=== PATIENT | female | born 1985 | race Caucasian/White ===

== ENCOUNTER 2019-10-24 08:20 | Outpatient (CLI) | payer BC, SELFPAY | END 2019-10-24 08:21 | disposition home or self-care (01) | LOC: ANHAUDIO 08:27 | PROVIDERS: PCP Nurse Practitioner Adult Health; Referring Provider Otolaryngology; Visit Provider Otolaryngology | DX: R42 Dizziness and giddiness (principal) | CPT/HCPCS: 92537; 92540; 92546; 92557; 92567 ==

== ENCOUNTER 2021-08-28 22:27 | Emergency (ER) | payer OTHER, SELFPAY ==
--- NOTE | ~2021-08-28 | CT_ITS ---
EXAMINATION: CT abdomen pelvis w con DATE: 08/29/2021 01:28 INDICATION: Right upper quadrant abdominal pain radiating to back TECHNIQUE: Computed tomography (CT) of the abdomen and pelvis was performed with 100 cc Omnipaque 350 intravenous contrast. Automated exposure control and iterative reconstruction technique were employe d. Exam dose: 1565.08 mGy-cm total exam DLP. COMPARISON: None. FINDINGS: The lung bases are clear. Normal heart size. No pericardial or pleural effusion. Small sliding hiatal hernia. Postoperative change of the stomach. There is thickening and/or edema of the gallbladder wall suggesting possible acute cholecystitis. Con curriculum development coordinator gallbladder ultrasound and possibly radionuclide hepatobiliary scan as clinically appropriate. No hepatic space-occupying mass lesion. No bile duct dilatation. No pancreatic mass lesion, calcifica tion or ductal dilatation. Normal splenic size. Normal morphology of the adrenal glands. No renal space occupying mass lesion other than 9 mm lower pole left renal cyst. No urinary tract angel culus or hydroureteronephrosis. There is an IUD within the uterus. Normal caliber of the abdominal aorta. No intraperitoneal or retroperitoneal or pelvic mass lesion or adenopathy or ascites. Normal appendix. Diverticulosis of left and right colon; no CT evidence of diverticulitis. No bowel obstruction, bowel wall thickening, pneumatosis or intraperitoneal free air. Very small fat-containing umbilical hernia. IMPRESSION: Mild gallbladder wall thickening and/or edema, suggesting possible acute cholecystitis. Consider gallbladder ultrasound and possibly radionuclide hepatobiliary scan as clinically appropriat e Mild colonic diverticulosis; no CT evidence of diverticulitis Small sliding hiatal hernia Postoperative change of the stomach 9 mm lower pole left renal cyst IUD within uterus Dr. Light telephoned the report and the finding of gallbladder wall thickening and/or edema and possib le acute cholecystitis on 08/29/2021 1527 hours to emergency room physician Dr. De La Fuente. Reviewed, dictated and finalized at [facility]. Reviewed, dictated and finalized at location A. DOWN SPECIALIST IMPRESSION: Mild gallbladder wall thickening and/or edema, suggesting possible acute cholecystitis. Consider gallbladder ultrasound and possibly radionuclide hepatobiliary scan as clinically appropriate Mild colonic diverticulosis; no CT evidence of diverticulitis Small sliding hiatal hernia Postoperative change of the stomach 9 mm lower pole left renal cyst IUD within uterus Dr. Light telephoned the report and the finding of gallbladder wall thickening a nd/or edema and possible acute cholecystitis on 08/29/2021 1527 hours to emerge ncy room physician Dr. De La Fuente.
[2021-08-28 22:31] VITALS: BP 156/94; PULSE 65; RESP 18; TEMP 35.9; O2SAT 100
--- NOTE | 2021-08-28 22:35 | ECG_ITS ---
Measurements Intervals [place] Rate: 59 P: 42 ID: 144 QRS: 27 QRSD: 98 T: 40 QT: 416 QTc: 414 Interpretive Statements SINUS BRADYCARDIA MINIMAL Q WAVES- HIGH LATERAL LEADS BORDERLINE ECG Electronically Signed On 08-29-2021 8:28:42 DAY LIGHT RELIEF OPERATOR by Greg Anderson D.O.
[2021-08-28] MEDS: ONDANSETRON INJ 4 MG/2 ML VIAL IV PUSH (23:50)
[2021-08-28] MEDS: MORPHINE SULFATE (*CRX) 4 MG/ML INJ IV PUSH (23:50)
[2021-08-29 00:02] LABS: Basophils Absolute Auto 0.1 K/mm3 (0.0-0.1); Basophils Percent Auto 0.4 % (0.2-1.2); Eosinophils Absolute Auto 0.3 K/mm3 (0-0.3); Eosinophils Percent Auto 2.2 % (0-4.4); Hematocrit 39.5 % (37.0-47.0); Hemoglobin 13.3 g/dL (12.0-15.0); Immature Granulocyte Absolute 0.05 K/mm3 (0.00-0.031); Immature Granulocyte Percent A 0.4 % (0-0.5); Lymphocytes Absolute Auto 2.79 K/mm3 (0.9-3.2); Lymphocytes Percent Auto 20.2 % (18.3-44.2); Mean Corpuscular HGB Conc 33.7 g/dl (32-36); Mean Corpuscular Hemoglobin 31.8 pg (26-34); Mean Corpuscular Volume 94.5 fl (80-100); Mean Platelet Volume 9.6 fl (7.4-10.4); Monocytes Percent Auto 7.4 % (2.6-8.5); Neutrophils Absolute Auto 9.6 K/mm3 (1.3-6.7); Neutrophils Percent Auto 69.4 % (45.5-73.1); Platelet Count Result 226 k/mm3 (150-375); Red Blood Count 4.18 M/mm3 (4.2-5.4); Red Cell Distribution Width 12.1 % (11.5-14.5); White Blood Count 13.8 K/mm3 (4.5-10.0)
--- NOTE | 2021-08-29 00:12 | ED.GENADULT ---
HPI - General Adult General Chief complaint: Chest Pain <Jeff Mesa MD - Last Filed: 08/29/21 01:08> Stated complaint: chest pain <Jeff Mesa MD - Last Filed: 08/29/21 01:08> Time Seen by Provider: 08/28/21 23:27 <Jeff Mesa MD - Last Filed: 08/29/21 01:08> History of Present Illness HPI narrative: Patient is a 35-year-old female who presents ER with upper abdominal pain. Moves into her back and under her breast. Ongoing for 24 hours. No improvement with acid reflux medication after consulting her PCP. She does have a gallbladder. She has mild nausea but no vomiting. No constipation or diarrhea or bloating. Cannot describe aggravating or alleviating factors. No exertional component. <Jeff Mesa MD - Last Filed: 08/29/21 01:08> Related Data Allergies/adverse reactions: Allergies Allergy/AdvReac Type Severity Reaction Status Date / Time No Known Allergies Allergy Verified 05/11/19 12:34 <Jeff Mesa MD - Last Filed: 08/29/21 01:08> Review of Systems Review of Systems: All systems reviewed & are unremarkable except as noted in HPI and below <Jeff Mesa MD - Last Filed: 08/29/21 01:08> Constitutional: Constitutional: Denies chills, Denies fever(s) and Denies weakness <Jeff Mesa MD - Last Filed: 08/29/21 01:08> ENT: Denies nasal congestion and Denies sore throat <Jeff Mesa MD - Last Filed: 08/29/21 01:08> Cardiovascular: Cardiovascular: Denies chest pain and Denies radiating jaw, neck or arm pain <Jeff Mesa MD - Last Filed: 08/29/21 01:08> Respiratory: Respiratory: Denies cough and Denies dyspnea <Jeff Mesa MD - Last Filed: 08/29/21 01:08> Gastrointestinal: Gastrointestinal: Reports abdominal pain, Denies constipation, Denies diarrhea, Reports nausea and Denies vomiting <Jeff Mesa MD - Last Filed: 08/29/21 01:08> Genitourinary: Genitourinary: Denies hematuria, Denies dysuria and Denies flank pain <Jeff Mesa MD - Last Filed: 08/29/21 01:08> [facility] Past Medical History Medical History: Medical History (Updated 08/29/21 @ 03:37 by Sidney Vee MD) Depression <Jeff Mesa MD - Last Filed: 08/29/21 01:08> Surgical History Surgical History: Surgical History (Updated 08/29/21 @ 00:18 by Jeff Mesa MD) History of gastric bypass <Jeff Mesa MD - Last Filed: 08/29/21 01:08> Social History Social History: Social History (Updated 08/29/21 @ 00:18 by Jeff Mesa MD) Smoking status: Never smoker <Jeff Mesa MD - Last Filed: 08/29/21 01:08> Exam Narrative: GENERAL: Well-appearing, obese, and in no acute distress. HEAD: Normocephalic, atraumatic. ENT: Mucous membranes moist. CHEST: Clear to auscultation. No respiratory distress. HEART: Regular rate and rhythm. Normal peripheral pulses. ABDOMEN: Soft, tender palpation right upper quadrant guarding, nondistended. EXTREMITIES: Normal range of motion. No edema. SKIN: Warm, dry, no rash. NEURO: Alert and oriented x3. PSYCH: Normal mood and affect. <Jeff Mesa MD - Last Filed: 08/29/21 01:08> Course Reevaluation(s) Reevaluation #1: Pain persisting after morphine. Second dose ordered. Patient will go to CT. <Jeff Mesa MD - Last Filed: 08/29/21 01:08> Date: 08/29/21 <Jeff Mesa MD - Last Filed: 08/29/21 01:08> Time: 01:08 <Jeff Mesa MD - Last Filed: 08/29/21 01:08> Vital Signs Vital signs: Vital Signs Temperature 35.9 C L 08/28/21 22:31 Pulse Rate 65 08/28/21 22:31 Respiratory Rate 18 08/28/21 22:31 Blood Pressure 156/94 H 08/28/21 22:31 Pulse Oximetry 100 08/28/21 22:31 Temperature 35.9 C L 08/28/21 22:31 Pulse Rate 75 08/29/21 02:54 Respiratory Rate 16 08/29/21 02:54 Blood Pressure 112/63 08/29/21 02:54 Pulse Oximetry 99 08/29/21 02:54 <Jeff Mesa,
[2021-08-29 00:15] LABS: Alanine Aminotransferase 17 U/L (4-35); Albumin Level 3.9 g/dL (3.5-5.1); Alkaline Phosphatase 52 U/L (38-126); Anion Gap 8 mmol/L (8-16); Aspartate Amino Transferase 25 U/L (14-36); Bilirubin,Total 0.6 mg/dL (0.2-1.3); Blood Urea Nitrogen 10 mg/dL (7-17); Carbon Dioxide 26 mmol/L (22-30); Chloride 103 mmol/L (98-107); Estimated CRCL calculation 134 ml/min; Estimated Glomerular Filt Rate > 60; Glucose 110 mg/dL (65-110); Lipase 97 U/L (23-300); Potassium 3.9 mmol/L (3.4-5.0); Sodium 137 mmol/L (137-145)
[2021-08-29 00:47] VITALS: BP 112/62; PULSE 65; RESP 18; O2SAT 100
[2021-08-29 01:39] VITALS: BP 106/74; PULSE 65; RESP 18; O2SAT 99
[2021-08-29] MEDS: MORPHINE SULFATE (*CRX) 4 MG/ML INJ IV PUSH (01:40)
[2021-08-29 02:54] VITALS: BP 112/63; PULSE 75; RESP 16; O2SAT 99
[2021-08-29 04:16] VITALS: BP 121/71; PULSE 36; RESP 16; O2SAT 96
== END 2021-08-29 04:05 | disposition home or self-care (01) ==
PROVIDERS: Emergency Medicine; Emergency Provider Emergency Medicine; PCP Nurse Practitioner Adult Health
DX: K29.00 Acute gastritis without bleeding (principal); Z98.84 Bariatric surgery status; R00.1 Bradycardia, unspecified
CPT/HCPCS: 36415; 74177; 80053; 81025; 83690; 85025; 93005; 96374; 96375; 96376; 99284; J2270; J2405; Q9967

== ENCOUNTER 2021-08-29 15:44 | Inpatient (IN) | payer OTHER, SELFPAY ==
[2021-08-29] VITALS (25 sets, daily range): BP systolic 121–141; BP diastolic 61–90; PULSE 78–104; RESP 16–25; TEMP 36.2–36.6; O2SAT 95–99; BMI 40.4
--- NOTE | ~2021-08-29 | US_ITS ---
US abdomen limited DATE: 08/31/2021 10:06 INDICATION: Elevated liver function tests. Cholecystitis. TECHNIQUE: Real-time imaging of liver, pancreas, gallbladder COMPARISON: 08/25/2021 CT abdomen pelvis FINDINGS: No hepatic or pancreatic space-occupying mass lesion is evident. Normal hepatopedal portal venous flow direction. There are multiple filling defects within the gallbladder with shadowing. The gallbladder wall measur es up to 4.8 mm thickness, suggesting acute or chronic cholecystitis. Negative sonographic Burk's s ign. The common bile duct measures 4 mm, within normal limits. IMPRESSION: Cholelithiasis Gallbladder wall thickening, suggesting acute or chronic cholecystitis. Reviewed, dictated and finalized at [facility]. Reviewed, dictated and finalized at location [facility]. 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
--- NOTE | ~2021-08-29 | XR_ITS ---
EXAMINATION: XR chest 2V DATE: 08/29/2021 16:56 INDICATION: Chest and abdominal pain TECHNIQUE: PA and lateral views of the chest were obtained. COMPARISON: Chest radiograph dated 08/20/2007 FINDINGS: The lungs remain clear with no focal airspace opacities, pulmonary edema, pleural effusion or pneumot horax. The cardiomediastinal silhouette is normal. Chronic mild anterior wedging at T11 and T12 which may be physiologic. IMPRESSION: 1. No acute cardiopulmonary disease. Reviewed, dictated and finalized at location [facility]. L DESIGNER
--- NOTE | ~2021-08-29 | XR_ITS ---
XR cholangiogram surg 1st inj DATE: 08/31/2021 11:57 INDICATION: Acute cholecystitis. Laparoscopic cholecystectomy. TECHNIQUE: Serial images of the bile ducts during intraoperative injection of the cystic duct 18.6 seconds fluoroscopy time [id number] [id number] COMPARISON: None FINDINGS: No stricture, abnormal dilatation or filling defect of the common bile duct or common hepat ic duct or the included left or right hepatic ducts is noted. Contrast material flows freely into the duodenum without obstruction. IMPRESSION: Negative Reviewed, dictated and finalized at [facility]. Reviewed, dictated and finalized at location [facility]. TRIC METER TECHNICIAN IMPRESSION: Negative
--- NOTE | 2021-08-29 16:28 | ECG_ITS ---
Measurements Intervals [place] Rate: 90 P: 17 VA: 148 QRS: 18 QRSD: 88 T: 19 QT: 349 QTc: 428 Interpretive Statements SINUS RHYTHM BORDERLINE T WAVE ABNORMALITY- ANT/INF LEADS BORDERLINE ECG Electronically Signed On 08-29-2021 17:01:30 STAKER SURVEYING by Greg Anderson D.O.
[2021-08-29 17:09] LABS: Basophils Percent Auto 0.2 % (0.2-1.2); Eosinophils Percent Auto 0.1 % (0-4.4); Hematocrit 42.8 % (37.0-47.0); Hemoglobin 14.5 g/dL (12.0-15.0); Immature Granulocyte Absolute 0.05 K/mm3 (0.00-0.031); Immature Granulocyte Percent A 0.3 % (0-0.5); Lymphocytes Absolute Auto 0.93 K/mm3 (0.9-3.2); Lymphocytes Percent Auto 6.2 % (18.3-44.2); Mean Corpuscular HGB Conc 33.9 g/dl (32-36); Mean Corpuscular Hemoglobin 31.5 pg (26-34); Mean Platelet Volume 9.3 fl (7.4-10.4); Monocytes Absolute Auto 0.8 K/mm3 (0.1-0.6); Monocytes Percent Auto 5.6 % (2.6-8.5); Neutrophils Absolute Auto 13.2 K/mm3 (1.3-6.7); Neutrophils Percent Auto 87.6 % (45.5-73.1); Platelet Count Result 223 k/mm3 (150-375); Red Cell Distribution Width 12.2 % (11.5-14.5); White Blood Count 15.1 K/mm3 (4.5-10.0)
[2021-08-29 17:18] LABS: Alanine Aminotransferase 275 U/L (4-35); Albumin Level 4.4 g/dL (3.5-5.1); Alkaline Phosphatase 105 U/L (38-126); Anion Gap 6 mmol/L (8-16); Aspartate Amino Transferase 240 U/L (14-36); Bilirubin,Total 1.8 mg/dL (0.2-1.3); Blood Urea Nitrogen 6 mg/dL (7-17); Calcium 9.5 mg/dL (8.4-10.2); Carbon Dioxide 26 mmol/L (22-30); Chloride 100 mmol/L (98-107); Estimated CRCL calculation 157 ml/min; Estimated Glomerular Filt Rate > 60; Glucose 124 mg/dL (65-110); Lipase 52 U/L (23-300); Potassium 3.9 mmol/L (3.4-5.0); Prothrombin Time 12.8 Seconds (11.1-14.7); Sodium 132 mmol/L (137-145)
[2021-08-29 17:19] LABS: Partial Thromboplastin Time 26.4 SECONDS (22.3-36.8)
[2021-08-29 17:30] LABS: Troponin I < 0.012 ng/mL (0.000-0.034)
--- NOTE | 2021-08-29 21:04 | ED.ABDPAIN ---
HPI - Abdominal Pain General Chief Complaint: Chest Pain Stated Complaint: chest pain Time Seen by Provider: 08/29/21 20:58 Source: patient Mode of arrival: ambulatory Limitations: no limitations History of Present Illness HPI narrative: Patient is a 35-year-old female complaining of right upper quadrant pain, 8 out of 10, sharp, radiating to back and chest started 3 days ago. Patient also complained of nausea, denies any vomiting, fever or chills. Patient was seen here last night initial CT reading by [facility] was antral gastritis, officially read by our radiologist and read it as acute cholecystitis. Patient states she is back because the pain is worse. Related Data Allergies Allergy/AdvReac Type Severity Reaction Status Date / Time No Known Allergies Allergy Verified 05/11/19 12:34 Review of Systems Review of Systems: All systems reviewed & are unremarkable except as noted in HPI and below Constitutional: Constitutional: Denies body ache(s), Denies chills, Denies excessive sweating, Denies fatigue, Denies fever(s), Denies headache(s), Denies lethargy, Denies malaise, Denies weakness and Denies weight loss Eyes: Eyes: Denies blurry vision, Denies change in vision and Denies loss of vision ENT: Denies dizziness, Denies ear discharge, Denies headache(s), Denies lip swelling, Denies epistaxis, Denies nasal congestion, Denies neck pain, Denies throat swelling and Denies tongue swelling Cardiovascular: Cardiovascular: Denies diaphoresis, Denies rapid heart rate, Denies edema, Denies irregular heart rhythm, Denies lightheadedness, Denies palpitations, Denies dyspnea and Denies dyspnea on exertion Respiratory: Respiratory: Denies chest congestion, Denies cough, Denies hemoptysis, Denies dyspnea and Denies dyspnea on exertion Gastrointestinal: Gastrointestinal: Denies melena, Denies hematochezia, Denies diarrhea, Denies vomiting and Denies hematemesis Musculoskeletal: Musculoskeletal: Denies abnormal gait, Denies deformity, Denies joint swelling, Denies limited range of motion, Denies neck pain and Denies numbness Neurologic: Denies Abnormal speech present, Denies abnormal gait, Denies confusion, Denies dizziness, Denies headache(s), Denies focal weakness, Denies loss of vision, Denies numbness, Denies Other visual disturbances, Denies Sensory deficit (Neuro) and Denies weakness Psychiatric: Psychiatric: Denies confusion, Denies depression, Denies auditory hallucinations, Denies homicidal ideation and Denies suicidal ideation Endocrine: Endocrine: Denies cold intolerance, Denies excessive sweating, Denies fatigue, Denies heat intolerance and Denies palpitations Hematologic/Lymphatic: Hematologic/Lymphatic: Denies easy bleeding and Denies easy bruising Allergic/Immunologic: Allergic/Immunologic: Denies lip swelling, Denies throat swelling and Denies tongue swelling PMFSH Past Medical History Medical History (Updated 08/29/21 @ 21:12 by Sidney Vee MD) Depression Surgical History Surgical History (Updated 08/29/21 @ 00:18 by Jeff Mesa MD) History of gastric bypass Social History Social History (Updated 08/29/21 @ 00:18 by Jeff Mesa MD) Smoking status: Never smoker Comments Past medical history: Gastric bypass surgery, sleep Family history: None Social history: Non-smoker occasional EtOH use, no drug use Exam Const: General: cooperative, healthy appearing, comfortable, no acute distress, well developed, alert and awake; No confusion Orientation/consciousness: oriented to person, oriented to place, oriented to time, patient oriented x3 and No confusion Limitations: no limitations HENMT: Head: normal to inspection, normocephalic and atraumatic Ears: hearing grossly normal bilaterally, TM normal on the right and TM normal on the left General nose exam: Normal external nose present, Normal nares present and No nasal discharge present Face and sinus: normal facial exam Mouth: Yes Normal oral a
[2021-08-29] MEDS: HYDROmorphone HCL INJ (*CRX) 1 MG/ML SYR 0.5 MG IV PUSH (21:23)
[2021-08-29] MEDS: PROMETHAZINE HCL 25 MG/ML AMPUL 12.5 MG IV PUSH (21:25)
[2021-08-29] MEDS: LACTATED RINGERS 1,000 ML 250 ML IV CONT (21:29)
--- NOTE | 2021-08-29 23:50 | ADMGEN ---
This patient, Emmanuelle Ram, was admitted to Medical Room 343-01. Patient/family oriented to hospital policies and general routines including ID bracelet, bed and alarms, visiting hours, pain management, procedures, bathroom and other care routines, personal items, smoking policy, room service/diet, and visiting hours. Information on how to activate the Rapid Response Team has been discussed. Patient/Family are encouraged to report perceived risks to care and to ask questions if they do not understand what they are told or what they should do.
[2021-08-30 00:14] VITALS: RESP 16; O2SAT 98
[2021-08-30] MEDS: LACTATED RINGERS 1,000 ML 125 ML IV CONT ×3 (01:33→20:17)
[2021-08-30] MEDS: ONDANSETRON INJ 4 MG/2 ML VIAL IV PUSH ×2 (01:35→06:05)
[2021-08-30] MEDS: HYDROmorphone HCL INJ (*CRX) 1 MG/ML SYR 0.5 MG IV PUSH ×4 (01:35→20:18)
[2021-08-30 04:20] VITALS: BP 110/62; PULSE 77; RESP 17; TEMP 36.4; O2SAT 98
[2021-08-30 06:27] LABS: Basophils Percent Auto 0.2 % (0.2-1.2); Eosinophils Percent Auto 0.1 % (0-4.4); Hematocrit 39.6 % (37.0-47.0); Hemoglobin 13.3 g/dL (12.0-15.0); Immature Granulocyte Absolute 0.06 K/mm3 (0.00-0.031); Immature Granulocyte Percent A 0.4 % (0-0.5); Lymphocytes Percent Auto 8.2 % (18.3-44.2); Mean Corpuscular HGB Conc 33.6 g/dl (32-36); Mean Corpuscular Hemoglobin 31.7 pg (26-34); Mean Corpuscular Volume 94.3 fl (80-100); Mean Platelet Volume 9.8 fl (7.4-10.4); Monocytes Percent Auto 7.1 % (2.6-8.5); Neutrophils Absolute Auto 12.3 K/mm3 (1.3-6.7); Platelet Count Result 195 k/mm3 (150-375); Red Cell Distribution Width 12.2 % (11.5-14.5); White Blood Count 14.6 K/mm3 (4.5-10.0)
[2021-08-30 06:34] LABS: Alanine Aminotransferase 191 U/L (4-35); Albumin Level 3.9 g/dL (3.5-5.1); Alkaline Phosphatase 88 U/L (38-126); Anion Gap 3 mmol/L (8-16); Aspartate Amino Transferase 105 U/L (14-36); Bilirubin,Total 2.1 mg/dL (0.2-1.3); Blood Urea Nitrogen 5 mg/dL (7-17); Calcium 8.8 mg/dL (8.4-10.2); Carbon Dioxide 25 mmol/L (22-30); Chloride 102 mmol/L (98-107); Estimated CRCL calculation 159 ml/min; Estimated Glomerular Filt Rate > 60; Glucose 109 mg/dL (65-110); Potassium 3.9 mmol/L (3.4-5.0); Sodium 130 mmol/L (137-145)
--- NOTE | 2021-08-30 11:30 | PM.IMHP ---
H&P: HPI History of Present Illness Date/Time: 08/30/21 11:30 Chief Complaint: Upper abdominal pain Narrative: this is a 35-year-old woman who presented to the emergency department overnight with upper abdominal pain for the past 4 days. She began having pain 4 days ago after eating a banana and some oranges. She had mild cramping about 2 weeks ago but this went away with time. Otherwise she has never had any symptoms like this in the past. She did present to the emergency department on 08/[address] at that time was read as mild gastric antrum thickening by the [facility]. The CT was then read by our in-house radiologist the following morning as mild gallbladder wall thickening. No gallstones were seen. She went home from the emergency department on 08/28 but continued to have worsening pain throughout the day yesterday. She then presented back to the emergency department last night. Her liver enzymes are now noted to be elevated and her white blood count is still persistently elevated. She was admitted for further treatment and placed on broad-spectrum IV antibiotics. She has had some nausea but no vomiting. She denies any change in her bowels. She has had slightly darker orange-colored urine. Review of Systems Review of Systems: All systems reviewed & are unremarkable except as noted in HPI and below Constitutional: Constitutional: Denies chills and Denies fever(s) Eyes: Eyes: Denies change in vision ENT: Denies hearing loss, Denies neck pain and Denies sore throat Cardiovascular: Cardiovascular: Denies chest pain and Denies dyspnea Respiratory: Respiratory: Denies cough, Denies dyspnea and Denies wheezing Gastrointestinal: Gastrointestinal: Reports as per HPI Genitourinary: Genitourinary: Denies hematuria and Denies dysuria Musculoskeletal: Musculoskeletal: Denies arthralgias, Denies joint swelling and Denies neck pain Allergic/Immunologic: Allergic/Immunologic: Denies wheezing [facility] Past Medical History Medical History (Updated 08/30/21 @ 11:36 by Fermin Thompson DO) Depression Surgical History Surgical History (Updated 08/30/21 @ 11:34 by Fermin Thompson DO) History of sleeve gastrectomy Family History Family History Mother Cholecystitis Social History Social History (Reviewed 08/30/21 @ 11:33 by WINSOME Maher Smoking status: Never smoker Alcohol intake: current Drinks per week: 1 Substance use: current Substance use type: marijuana Other substance usage details: Jun 2021 Spiritual care concerns: No Meds Home Medications and Allergies Home Medications Medication Instructions Recorded Confirmed Type esomeprazole magnesium [Nexium 20 mg PO DAILY #7 cap 08/29/21 08/29/21 Rx 24HR] famotidine [Pepcid] 20 mg PO BID #10 tablet 08/29/21 08/29/21 Rx bupropion HCl 150 mg PO DAILY 08/30/21 08/30/21 History omeprazole 40 mg PO QAM AND QHS 08/30/21 08/30/21 History Allergies Allergy/AdvReac Type Severity Reaction Status Date / Time No Known Allergies Allergy Verified 08/29/21 23:53 Vital Signs Vital Signs - 24 hr 08/29/21 16:24 08/29/21 21:12 08/29/21 21:13 Temperature 36.6 C Pulse Rate 103 H 86 84 Respiratory Rate 18 24 H 17 Blood Pressure 128/79 137/85 137/85 Pulse Oximetry 98 95 98 08/29/21 21:15 08/29/21 21:16 08/29/21 21:30 Temperature Pulse Rate 87 81 87 Respiratory Rate 23 H 23 H 20 Blood Pressure 133/87 Pulse Oximetry 97 98 97 08/29/21 21:31 08/29/21 21:45 08/29/21 21:46 Temperature Pulse Rate 91 85 91 Respiratory Rate 20 16 17 Blood Pressure 138/82 134/82 Pulse Oximetry 96 97 98 08/29/21 22:00 08/29/21 22:01 08/29/21 22:15 Temperature Pulse Rate 90 86 81 Respiratory Rate 24 H 23 H 20 Blood Pressure 140/86 Pulse Oximetry 96 96 97 08/29/21 22:16 08/29/21 22:30 08/29/21 22:31 Temperature Pulse Rate 79 78 80 Respirato
[2021-08-30 14:41] VITALS: BP 110/63; PULSE 84; RESP 20; TEMP 36.2; O2SAT 99
[2021-08-30 22:55] VITALS: BP 119/67; PULSE 90; RESP 20; TEMP 39.1; O2SAT 97
[2021-08-31] VITALS (19 sets, daily range): BP systolic 108–131; BP diastolic 55–81; PULSE 72–90; RESP 16–24; TEMP 36.1–38.4; O2SAT 94–100
[2021-08-31] MEDS: LACTATED RINGERS 1,000 ML 125 ML IV CONT (04:37)
--- NOTE | 2021-08-31 04:50 | PC.NURSE ---
Dr Thompson notified pt febrile 102.3. Blood cultures ordered, continue to monitor and provider will see pt in the morning.
[2021-08-31 06:03] LABS: Hemoglobin 12.6 g/dL (12.0-15.0); Mean Corpuscular HGB Conc 33.2 g/dl (32-36); Mean Corpuscular Hemoglobin 31.4 pg (26-34); Mean Corpuscular Volume 94.8 fl (80-100); Mean Platelet Volume 9.7 fl (7.4-10.4); Platelet Count Result 159 k/mm3 (150-375); Red Blood Count 4.01 M/mm3 (4.2-5.4); Red Cell Distribution Width 12.5 % (11.5-14.5); White Blood Count 10.2 K/mm3 (4.5-10.0)
[2021-08-31 06:21] LABS: Alanine Aminotransferase 121 U/L (4-35); Albumin Level 3.5 g/dL (3.5-5.1); Alkaline Phosphatase 109 U/L (38-126); Anion Gap 5 mmol/L (8-16); Aspartate Amino Transferase 52 U/L (14-36); Bilirubin,Total 2.6 mg/dL (0.2-1.3); Blood Urea Nitrogen 4 mg/dL (7-17); Calcium 8.7 mg/dL (8.4-10.2); Carbon Dioxide 25 mmol/L (22-30); Chloride 102 mmol/L (98-107); Estimated CRCL calculation 159 ml/min; Estimated Glomerular Filt Rate > 60; Glucose 96 mg/dL (65-110); Potassium 3.4 mmol/L (3.4-5.0); Sodium 132 mmol/L (137-145)
--- NOTE | 2021-08-31 07:18 | PM.PNGS ---
Progress Note: A&P Assessment and Plan (1) Acute cholecystitis: Code(s): K81.0 - Acute cholecystitis Status: Acute Assessment and Plan: Patient continues to have pain and is now having fevers. Bilirubin still slightly elevated but transaminases coming down. I have recommended proceeding with laparoscopic cholecystectomy with IOC, possible open. Discussed possibility of biliary obstruction which would then require GI eval for ERCP. Patient voiced her understanding and wishes to proceed. (2) Hyperbilirubinemia: Code(s): E80.6 - Other disorders of bilirubin metabolism Status: Acute (3) BMI 40.0-44.9, adult: Code(s): Z68.41 - Body mass index [BMI] 40.0-44.9, adult Status: Acute Subjective Subjective Date/Time Seen: 08/31/21 07:18 Interval history: Patient now having fevers and continues to have RUQ pain. Exam GI: GI Palp: Yes Tenderness to palpation present (GI) (RUQ) and Yes Guarding due to palpation present (GI) Objective Data Vital Signs Vital Signs: Vital Signs - 24 hr 08/30/21 14:41 08/30/21 22:55 08/31/21 00:11 Temperature 36.2 C L 39.1 C H 38.2 C H Pulse Rate 84 90 Respiratory Rate 20 20 Blood Pressure 110/63 119/67 Pulse Oximetry 99 97 08/31/21 04:04 08/31/21 04:39 08/31/21 04:42 Temperature 37.8 C H 38.4 C H 38.4 C H Pulse Rate 90 Respiratory Rate 24 H Blood Pressure 115/61 Pulse Oximetry 99 08/31/21 05:47 Temperature 37.6 C Pulse Rate Respiratory Rate Blood Pressure Pulse Oximetry Intake/Output Intake/Output: Intake & Output 08/28/21 08/29/21 08/30/21 08/31/21 23:59 23:59 23:59 23:59 Intake Total 50 2660 1100 Output Total 600 600 Balance 50 2060 500 Meds/Results Medications: Active Medications Generic Name Dose Route Start Last Admin Trade Name Freq PRN Reason Stop Dose Admin Bupropion HCl 150 mg 08/31/21 09:00 Bupropion Hcl Xl (24 Hr) 150 Mg Tabcr PO DAILY SCOTT Hydromorphone HCl 0.5 mg 08/29/21 21:12 08/30/21 20:18 Hydromorphone Hcl Inj (*Crx) 1 Mg/Ml Syr IV PUSH 0.5 mg Q4H PRN Administration Pain Rated 7-10 Lactated Ringer's 1,000 mls @ 125 mls/hr 08/29/21 21:15 08/31/21 04:37 Lr - Lactated Ringers Iv IV CONT 125 mls/hr .Q8H SCOTT Administration Acetaminophen 1,000 mg in 100 mls @ 400 mls/hr 08/30/21 09:49 08/31/21 04:54 Ofirmev 1,000 Mg Ivpb IVPB 08/31/21 09:48 Infused Q6H PRN Infusion Pain Rated 4-6 Ondansetron HCl 4 mg 08/29/21 21:12 08/30/21 06:05 Ondansetron Inj 4 Mg/2 Ml Vial IV PUSH 4 mg Q4H PRN Administration Nausea Pantoprazole Sodium 40 mg 08/31/21 09:00 Pantoprazole 40 Mg [facility] Results: ITS Impressions Chest X-Ray 08/29/21 17:11 IMPRESSION: 1. No acute cardiopulmonary disease. Labs Labs: Laboratory Results - last 24 hr 08/31/21 08/31/21 05:40 05:40 WBC 10.2 H RBC 4.01 L Hgb 12.6 Hct 38.0 MCV 94.8 MCH 31.4 MCHC 33.2 RDW 12.5 Plt Count 159 MPV 9.7 Sodium 132 L Potassium 3.4 Chloride 102 Carbon Dioxide 25 Anion Gap 5 L BUN 4 L Creatinine 0.50 L Estim Creat Clear Calc 159 Estimated GFR > 60 Glucose 96 Calcium 8.7 Total Bilirubin 2.6 H AST 52 H ALT 121 H Alkaline Phosphatase 109 Total Protein 6.0 L Albumin 3.5
[2021-08-31] MEDS: ONDANSETRON INJ 4 MG/2 ML VIAL IV PUSH ×2 (07:53→14:03)
[2021-08-31] MEDS: HYDROmorphone HCL INJ (*CRX) 1 MG/ML SYR 0.5 MG IV PUSH (07:55)
--- NOTE | 2021-08-31 10:41 | WPDANESEPPF ---
Anes - Initial Pre Proc Eval Procedure: Operation Date: 08/31/21 11:00 Proposed Procedures p Laparoscopic Cholecystectomy with IOC's - Fermin Thompson DO Date/Time: 08/31/21 10:41 Surgeon: Fermin Thompson DO Pre Op Diagnosis: Acute cholecystitis Patient Data Age: 35 Gender: F Height: 1.63 m Weight: 106.9 kg Last Vital Signs Temp 37.8 C H 08/31/21 09:42 Pulse 72 08/31/21 08:00 Resp 20 08/31/21 08:00 BP 110/55 L 08/31/21 08:00 Pulse Ox 99 08/31/21 08:00 Allergies Allergy/AdvReac Type Severity Reaction Status Date / Time No Known Allergies Allergy Verified 08/29/21 23:53 Home Medications Medication Instructions Recorded Confirmed Type esomeprazole magnesium [Nexium 20 mg PO DAILY #7 cap 08/29/21 08/29/21 Rx 24HR] famotidine [Pepcid] 20 mg PO BID #10 tablet 08/29/21 08/29/21 Rx bupropion HCl 150 mg PO DAILY 08/30/21 08/30/21 History omeprazole 40 mg PO QAM AND QHS 08/30/21 08/30/21 History Laboratory Tests 08/31/21 08/31/21 05:40 05:40 WBC 10.2 K/mm3 H K/mm3 (4.5-10.0) RBC 4.01 M/mm3 L M/mm3 (4.2-5.4) Hgb 12.6 g/dL g/dL (12.0-15.0) Hct 38.0 % % (37.0-47.0) MCV 94.8 fl fl (80-100) MCH 31.4 pg pg (26-34) MCHC 33.2 g/dl g/dl (32-36) RDW 12.5 % % (11.5-14.5) Plt Count 159 k/mm3 k/mm3 (150-375) MPV 9.7 fl fl (7.4-10.4) Sodium 132 mmol/L L mmol/L (137-145) Potassium 3.4 mmol/L mmol/L (3.4-5.0) Chloride 102 mmol/L mmol/L (98-107) Carbon Dioxide 25 mmol/L mmol/L (22-30) Anion Gap 5 mmol/L L mmol/L (8-16) BUN 4 mg/dL L mg/dL (7-17) Creatinine 0.50 mg/dL L mg/dL (0.7-1.0) Estim Creat Clear Calc 159 ml/min ml/min Estimated GFR > 60 (59 - ) Glucose 96 mg/dL mg/dL (65-110) Calcium 8.7 mg/dL mg/dL (8.4-10.2) Total Bilirubin 2.6 mg/dL H mg/dL (0.2-1.3) AST 52 U/L H U/L (14-36) ALT 121 U/L H U/L (4-35) Alkaline Phosphatase 109 U/L U/L (38-126) Total Protein 6.0 g/dL L g/dL (6.3-8.2) Albumin 3.5 g/dL g/dL (3.5-5.1) Patient hx anesthesia problems: none Family hx anesthesia problems: none Results Review: All pre-operative results and documents have been reviewed as part of the pre-operative evaluation. [facility] Past Medical History Medical History (Updated 08/30/21 @ 11:36 by Fermin Thompson DO) Depression Surgical History Surgical History History of sleeve gastrectomy Family History Family History Mother Cholecystitis Social History Social History Smoking status: Never smoker Alcohol intake: current Drinks per week: 1 Substance use: current Substance use type: marijuana Other substance usage details: Jun 2021 Spiritual care concerns: No Anes - Eval Final PreProcedure Day of Procedure 08/31/21 10:41 Patient weight: morbidly obese Heart: regular rate and rhythm Lungs: clear to auscultation Airway: Mallampati scale class II Neurological: alert and oriented Last oral intake: >/= 8 hours ASA classification: III Emergent: no Anesthetic plan: proceed Anesthesia type and monitoring: general ETT and standard monitoring Results Review: All pre-operative results and documents have been reviewed as part of the pre-operative evaluation. Informed Consent: The patient's anesthetic plan and its attendant risks and benefits were discussed with the patient/family/POA. Questions were solicited and answers provided to the satisfaction of the patient/family/POA.
--- NOTE | 2021-08-31 10:45 | WPDHPUPDATE1 ---
History and Physical Update Update Date/Time: 08/31/21 10:45 History and Physical has been reviewed, including an updated exam of the patient. There are NO changes in the patient's condition. Risks, benefits, and alternatives have been discussed and questions answered. Patient agrees to proceed with procedure.
[2021-08-31] MEDS: LACTATED RINGERS 1,000 ML 30 ML IV CONT ×2 (11:00→12:42)
[2021-08-31] MEDS: BUPIVACAINE HCL 0.5% PF 30 ML VIAL INFILTRATE (11:32)
--- NOTE | 2021-08-31 12:23 | W.PM.PROC2 ---
Procedure Note - Detailed Date of Procedure 08/31/21 Pre-op Diagnosis Acute calculous cholecystitis, hyperbilirubinemia Post-op Diagnosis other (Acute calculous cholecystitis, gallbladder hydrops) Procedure Performed Laparoscopic Cholecystectomy with Intraoperative Cholangiogram Surgeon Fermin Thompson, DO Anesthesia general and local (0.5% bupivacaine) Indications This is a 35-year-old woman who presented to the emergency department on 08/29/2021 with right upper quadrant abdominal pain. She had been to the emergency department less than 24 hours prior with similar complaints. CT at that time showed mild gallbladder wall thickening but her liver enzymes were normal. Upon her 2nd presentation her liver enzymes were starting to show slight elevation. She was admitted for further treatment. She did start experiencing fevers last night and her bilirubin was gradually increasing up to 2.6. MRI and ERCP were unavailable this weekend, therefore discussions were made with the patient about continuing observation versus proceeding with surgery. Due to the fevers and continuing rising of the liver enzymes I recommended proceeding with laparoscopic cholecystectomy with intraoperative cholangiogram, possible open. Findings Laparoscopic cholecystectomy with intraoperative cholangiogram was performed. The gallbladder was tense and dilated. There was evidence of gallbladder hydrops. The gallbladder wall was thickened and there were multiple gallstones within the gallbladder. The cystic duct appeared normal in size. Intraoperative cholangiogram was obtained using Omnipaque contrast. There is no evidence of filling defects or bile duct obstruction. The images were sent to the radiologist for interpretation. The gallbladder was then removed and sent to the lab for pathology. Description of Procedure Procedure as well as risks, benefits, and alternatives were discussed with patient. Written consent was obtained and placed in chart prior to procedure. The patient was brought back to surgical suite. Patient was placed in supine position on operating table. Time-out was done to confirm patient and procedure. Patient was then intubated by the anesthesia department. Abdomen was prepped and draped in sterile fashion using chlorhexidine prep. 0.5% bupivacaine with epinephrine was infiltrated at each site of incision. A 5 millimeter incision was made near the umbilicus, and a 5 millimeter Optiview trocar was advanced through the abdominal layers under direct visualization. Once inside the abdominal cavity, carbon dioxide was insufflated to create a pneumoperitoneum. The camera was inserted and the abdomen was inspected. No immediate abnormalities were identified. The patient was placed in reverse Trendelenburg position and rotated slightly to the left. An 11 millimeter incision was made in the subxiphoid region, and an 11 millimeter trocar was inserted under direct visualization. Two 5 millimeter incisions were made in the right upper quadrant, and two 5 millimeter trocars were inserted under direct visualization. The gallbladder was identified and grasped at the fundus and retracted superiorly. It was then grasped at the infundibulum retracted laterally. Careful dissection around the neck of the gallbladder was performed using blunt dissection with a [place] grasper and hook electrocautery. The cystic duct was identified, and a window was created behind it. The cystic artery was also identified and a window was created behind it. The critical view of safety was identified, visualizing the cystic duct running directly into the neck of the gallbladder, and the cystic artery running directly into the wall of the gallbladder. A 5 millimeter clip supervisor cutting and sewing room was then used to place 2 clips proximally and 1 clip distally on the cystic artery. It was then transected using endoscopic scissors. I then placed the Mixon clamp across the distal neck of the gallbladder and the ch
[2021-08-31] MEDS: fentaNYL CITRATE INJ (*CRX) 100 MCG/2 ML VIAL 25 MCG IV PUSH ×4 (12:34→12:58)
[2021-08-31] MEDS: MORPHINE SULFATE (*CRX) 2 MG/ML INJ IV PUSH (14:04)
[2021-08-31] MEDS: ACETAMINOPHEN 325 MG TABLET 650 MG PO (14:32)
[2021-08-31] MEDS: HYDROcodone/acetaminophen (*CRX) 10-325 MG TABLET 1 TAB PO ×2 (16:04→22:24)
[2021-08-31] MEDS: HYDROcodone/acetaminophen (*CRX) 5-325 MG TABLET 1 TAB PO (20:38)
[2021-09-01] VITALS (8 sets, daily range): BP systolic 110–125; BP diastolic 62–81; PULSE 73–88; RESP 16–20; TEMP 36.2–38.4; O2SAT 90–96
[2021-09-01] MEDS: HYDROcodone/acetaminophen (*CRX) 5-325 MG TABLET 1 TAB PO ×3 (02:07→12:08)
[2021-09-01] MEDS: ACETAMINOPHEN 325 MG TABLET 650 MG PO (02:08)
[2021-09-01 06:22] LABS: Hematocrit 36.4 % (37.0-47.0); Hemoglobin 11.7 g/dL (12.0-15.0); Mean Corpuscular HGB Conc 32.1 g/dl (32-36); Mean Corpuscular Hemoglobin 30.5 pg (26-34); Mean Corpuscular Volume 94.8 fl (80-100); Mean Platelet Volume 9.8 fl (7.4-10.4); Platelet Count Result 199 k/mm3 (150-375); Red Blood Count 3.84 M/mm3 (4.2-5.4); Red Cell Distribution Width 12.4 % (11.5-14.5); White Blood Count 14.9 K/mm3 (4.5-10.0)
[2021-09-01 06:31] LABS: Alanine Aminotransferase 107 U/L (4-35); Albumin Level 3.4 g/dL (3.5-5.1); Alkaline Phosphatase 112 U/L (38-126); Anion Gap 5 mmol/L (8-16); Aspartate Amino Transferase 64 U/L (14-36); Bilirubin,Total 1.9 mg/dL (0.2-1.3); Blood Urea Nitrogen 3 mg/dL (7-17); Calcium 8.5 mg/dL (8.4-10.2); Carbon Dioxide 28 mmol/L (22-30); Chloride 99 mmol/L (98-107); Estimated CRCL calculation 159 ml/min; Estimated Glomerular Filt Rate > 60; Glucose 107 mg/dL (65-110); Potassium 3.1 mmol/L (3.4-5.0); Sodium 132 mmol/L (137-145)
--- NOTE | 2021-09-01 07:38 | WPDANESPN ---
Anes - Prog Note Post-Op Date/Time: 09/01/21 07:38 Cardiovascular status: normal Respiratory status: normal Airway patency: baseline Mental status: baseline Post-Op hydration status: normal Vital Signs: Last Vital Signs Temp 98.1 F 09/01/21 06:15 Pulse 80 09/01/21 06:15 Resp 18 09/01/21 06:15 BP 113/67 09/01/21 06:15 Pulse Ox 94 09/01/21 06:15 Pain Score (VAS): 1 I/O: Intake & Output 08/31/21 08/31/21 09/01/21 15:59 23:59 07:59 Intake Total 252 932 0971 Output Total 258 620 9599 Balance -100 -250 -300 Laboratory Tests 09/01/21 05:44 09/01/21 05:44 09/01/21 09/01/21 05:44 05:44 WBC 14.9 H RBC 3.84 L Hgb 11.7 L Hct 36.4 L MCV 94.8 MCH 30.5 MCHC 32.1 RDW 12.4 Plt Count 199 MPV 9.8 Sodium 132 L Potassium 3.1 L Chloride 99 Carbon Dioxide 28 Anion Gap 5 L BUN 3 L Creatinine 0.50 L Estim Creat Clear Calc 159 Estimated GFR > 60 Glucose 107 Calcium 8.5 Total Bilirubin 1.9 H AST 64 H ALT 107 H Alkaline Phosphatase 112 Total Protein 6.0 L Albumin 3.4 L Microbiology 08/30/21 23:35 Blood Blood Culture - Preliminary 08/30/21 23:35 Blood Blood Culture - Preliminary Post-procedural complaints: none Patient Feedback: Patient satisfied with anesthetic care.
[2021-09-01] MEDS: HYDROcodone/acetaminophen (*CRX) 10-325 MG TABLET 1 TAB PO ×2 (08:02→16:14)
[2021-09-01] MEDS: buPROPion HCL XL (24 HR) 150 MG TABCR PO (08:03)
[2021-09-01] MEDS: ENOXAPARIN 40 MG/0.4 ML SYRINGE SUB-Q (08:03)
[2021-09-01] MEDS: PANTOPRAZOLE 40 MG TABLET PO (08:04)
--- NOTE | 2021-09-01 15:25 | PM.DS ---
DS: Admitting Diagnosis Discharge Date 09/01/2021 Admitting Diagnosis acute cholecystitis, elevated liver enzymes, BMI 40 DS: Discharge Diagnosis Discharge Diagnosis (1) Acute cholecystitis: Code(s): K81.0 - Acute cholecystitis Status: Acute (2) Hyperbilirubinemia: Code(s): E80.6 - Other disorders of bilirubin metabolism Status: Acute (3) BMI 40.0-44.9, adult: Code(s): Z68.41 - Body mass index [BMI] 40.0-44.9, adult Status: Acute DS: Summary Hospital Course Reason for hospitalization: acute cholecystitis Hospital Course: this is a 35-year-old woman who presented to the emergency department on 08/29/2021 with complaints of upper abdominal pain. She had just been to the emergency department the night before with similar complaints. Now she was noted to have an elevated white blood count and elevated liver enzymes. She was admitted for further treatment. On 08/30, her bilirubin had risen slightly. She was given a clear liquid diet and decision was made to get an ultrasound the following morning and possibly proceed with laparoscopic cholecystectomy in the near future. Overnight on 08/30, she began experiencing some fevers. She was started on Zosyn on 08/31 1st thing in the morning. Blood cultures were also obtained which were coming back negative after 2 days. An ultrasound showed evidence of acute cholecystitis with cholelithiasis. There was no common bile duct dilation. Decision was then made to proceed with laparoscopic cholecystectomy with intraoperative cholangiogram on 08/31/2021. She was found to have evidence of gallbladder hydrops and cholecystitis, but cholangiogram showed no evidence of bile duct obstruction or filling defects. She was returned to the surgical floor and her diet and activity were slowly advanced as tolerated. She did continue to have occasional fever overnight on 08/31, but on 09/01 her fevers seemed to have resolved. By the afternoon her pain was better controlled and she was tolerating a low-fat diet. Since blood cultures were coming back negative, decision was made to discharge her on 09/01. Status at Discharge Functional status at discharge: independent ambulation Overall status at discharge: patient is progressing back to baseline Time Spent with Patient Time attestation: Total time spent providing and/or coordinating discharge services: Time spent: Less than 30 minutes Exam Const: General: cooperative, comfortable and no acute distress Orientation/consciousness: patient oriented x3 GI: Inspection: incision ( Intact with glue) GI Palp: Yes Soft to palpation and Yes Tenderness to palpation present (GI) ( incisional) Auscultation: normal bowel sounds DS: Data Data Completed and Pending Pending studies at discharge: Pending at discharge 08/31/21 11:52 Surgical [PTH] Routine Labs on day of discharge: Labs from last 24 hours 09/01/21 09/01/21 05:44 05:44 WBC 14.9 H RBC 3.84 L Hgb 11.7 L Hct 36.4 L MCV 94.8 MCH 30.5 MCHC 32.1 RDW 12.4 Plt Count 199 MPV 9.8 Sodium 132 L Potassium 3.1 L Chloride 99 Carbon Dioxide 28 Anion Gap 5 L BUN 3 L Creatinine 0.50 L Estim Creat Clear Calc 159 Estimated GFR > 60 Glucose 107 Calcium 8.5 Total Bilirubin 1.9 H AST 64 H ALT 107 H Alkaline Phosphatase 112 Total Protein 6.0 L Albumin 3.4 L Preliminary micro results at discharge 08/30/21 23:35 Blood Culture - Preliminary Blood 08/30/21 23:35 Blood Culture - Preliminary Blood Imaging Radiologist's impression: ITS Impressions Chest X-Ray 08/29/21 17:11 IMPRESSION: 1. No acute cardiopulmonary disease. Abdomen Ultrasound 08/31/21 10:16 IMPRESSION: Cholelithiasis Gallbladder wall thickening, suggesting acute or chronic cholecystitis. Cholangiogram,Operative 08/31/21 12:14 IMPRESSION: Negative Discharge Plan Discharge Attending physician o
== END 2021-09-01 16:50 | disposition home or self-care (01) | DRG 418 ==
LOC: ANHED 21:19 → ANH3MED 23:07
PROVIDERS: Admitting Provider Surgery; Emergency Provider Emergency Medicine; PCP Nurse Practitioner Adult Health; Visit Provider Surgery
PROC: 0FT44ZZ Resection of Gallbladder, Percutaneous Endoscopic Approach (ICD-10-PCS; CPT 47562; principal; 2021-08-31 11:00)
DX: K80.00 Calculus of gallbladder with acute cholecystitis without obstruction (principal); K82.1 Hydrops of gallbladder; Z68.41 Body mass index [BMI] 40.0-44.9, adult; E80.6 Other disorders of bilirubin metabolism; E66.01 Morbid (severe) obesity due to excess calories; Z98.84 Bariatric surgery status; Z79.899 Other long term (current) drug therapy
CPT/HCPCS: 36415; 71046; 74177; 74300; 76705; 80053; 81025; 83690; 84484; 85025; 85027; 85610; 85730; 87040; 88304; 93005; 96361; 96365; 96374; 96375; 96376; 99284; 99285; A9270; G0378; J0131; J0330; J1170; J1650; J2250; J2270; J2405; J2543; J2550; J3010; J7120; Q9966; Q9967

== ENCOUNTER 2022-12-05 08:14 | Emergency (ER) | payer OTHER, SELFPAY ==
[2022-12-05 08:23] VITALS: BP 138/85; PULSE 93; RESP 16; TEMP 36.7; O2SAT 100
--- NOTE | 2022-12-05 08:25 | ED.URI ---
HPI - URI/Sore Throat General Chief Complaint: Upper Respiratory Infection Stated Complaint: Sore Throat Source: patient and RN notes reviewed History of Present Illness HPI Narrative: 36-year-old female presents to urgent care with a sore throat since yesterday. Patient reports associated fevers and chills as well as some nausea yesterday. Patient reports a slight headache. 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 Denies any ear pain, chest pain, shortness of breath, or vomiting. Some parts of this dictation were generated by voice recognition software and may contain typographical and/or grammatical inaccuracies. Related Data Home Medications Medication Instructions Recorded Confirmed bupropion HCl 150 mg 24 hr tablet, 150 mg PO BID 12/05/22 12/05/22 extended release escitalopram oxalate 20 mg tablet 20 mg PO DAILY 12/05/22 12/05/22 Allergies Allergy/AdvReac Type Severity Reaction Status Date / Time No Known Allergies Allergy Verified 12/05/22 08:19 Review of Systems Review of Systems: Pertinent positives and pertinent negatives per HPI. [facility] Past Medical History Medical History Depression Surgical History Surgical History History of sleeve gastrectomy Hx laparoscopic cholecystectomy 08/31/21 Family History Family History Mother Cholecystitis Social History Social History Smoking status: Never smoker Alcohol intake: current Drinks per week: 1 Substance use: current Substance use type: marijuana Other substance usage details: Jun 2021 Spiritual care concerns: No Comments At the time of my signature, I reviewed and agree with the nursing past medical, surgical, social, and family history. There is no relevant family history pertinent to the patient complaint. Exam Narrative: GENERAL: This is a well-nourished, well-developed patient, in no apparent distress. HEAD: normocephalic, atraumatic. EYES: PERRL. Sclera clear/white. Vision is grossly intact. EARS: External ears normal, auditory canals clear and without drainage, TMs normal without perforation. Hearing grossly intact. NOSE: External nose normal with no obvious nasal discharge, nares without redness, no rhinorrhea. THROAT: Mucous membranes moist, posterior pharynx erythremic. Tonsils 1+ bilaterally with exudate. NECK: Neck supple, non-tender without lymphadenopathy, masses or thyromegaly. CARDIOVASCULAR: Regular rate and rhythm without murmurs, gallops, or rubs. RESPIRATORY: Clear to auscultation. Breath sounds equal bilaterally. No wheezes, rales, or rhonchi. GASTROINTESTINAL: Abdomen soft, non-tender, nondistended. Bowel sounds are active. No hepato-splenomegaly, or palpable masses. No guarding. SKIN: warm, intact with no suspicious lesions or rash, good texture and turgor. NEURO: awake, alert, and oriented to person, place and time. There were no obvious focal neurologic abnormalities. EXTREMITIES: No clubbing, cyanosis, or edema. No joint tenderness, effusion, or edema noted. BACK: Nontender without deformity or crepitance. No flank tenderness. Course Course Level of Care: Express Care Visit Vital Signs Vital signs: Vital Signs Temperature 98.1 F 12/05/22 08:23 Pulse Rate 93 12/05/22 08:23 Respiratory Rate 16 12/05/22 08:23 Blood Pressure 138/85 12/05/22 08:23 Pulse Oximetry 100 12/05/22 08:23 Oxygen Delivery Room Air 12/05/22 08:23 Temperature 98.1 F 12/05/22 08:23 Pulse Rate 93 12/05/22 08:23 Respiratory Rate 16 12/05/22 08:23 Blood Pressure 138/85 12/05/22 08:23 Pulse Oximetry 100 12/05/22 08:23 Oxygen Delivery Room Air 12/05/22 08:23 reviewed MDM - URI/Sore Throat MDM Narrative Medical decision making narra
== END 2022-12-05 08:45 | disposition home or self-care (01) ==
PROVIDERS: Emergency Provider Nurse Practitioner Family; PCP Physician Assistant
DX: J02.0 Streptococcal pharyngitis (principal); F32.A Depression, unspecified; Z98.84 Bariatric surgery status
CPT/HCPCS: 87880; 99213; G0463